=== PATIENT | male | born 1965 | race Caucasian/White ===

== ENCOUNTER 2023-04-16 16:43 | Outpatient (RCR) | payer BC, SELFPAY | END 2023-04-16 23:59 | disposition home or self-care (01) | LOC: RPT 16:43 | PROVIDERS: ATTENDING PHYSICIAN Family Medicine | DX: M54.41 Lumbago with sciatica, right side (principal); Z73.6 Limitation of activities due to disability; R26.2 Difficulty in walking, not elsewhere classified | CPT/HCPCS: 97110; 97162 ==

== ENCOUNTER 2023-04-25 16:51 | Outpatient (RCR) | payer BC, SELFPAY | END 2023-04-25 23:59 | disposition home or self-care (01) | LOC: RPT 16:51 | PROVIDERS: ATTENDING PHYSICIAN Family Medicine | DX: M54.41 Lumbago with sciatica, right side (principal); Z73.6 Limitation of activities due to disability; R26.2 Difficulty in walking, not elsewhere classified | CPT/HCPCS: 97110 ==

== ENCOUNTER → 2023-05-23 09:33 | Outpatient (REF) | payer BC, SELFPAY | LOC: RAD 09:33 | PROVIDERS: ATTENDING PHYSICIAN Orthopaedic Surgery; FAMILY PHYSICIAN Emergency Medicine | DX: H05.50 Retained (old) foreign body following penetrating wound of unspecified orbit (principal) | CPT/HCPCS: 70030 ==